=== PATIENT | female | born 1960 | race Caucasian/White ===

== ENCOUNTER 2025-05-26 07:20 | Day surgery (SDC) | payer OTHER, SELFPAY ==
[2025-05-25 11:26] VITALS: BMI 31.1
[2025-05-26] VITALS (12 sets, daily range): BP systolic 129–155; BP diastolic 59–104; PULSE 70–97; RESP 13–20; TEMP 36.6–36.8; O2SAT 97–100; BMI 32.1
[2025-05-26] MEDS: SODIUM CHLORIDE 0.9% 500 ML 500 ML 20 ML IV (09:20)
[2025-05-26] MEDS: fentaNYL CIT INJ 50 mCg/ML AMP 2ML (ASD USE ONLY) IVP (09:28)
[2025-05-26] MEDS: MIDAZOLAM INJ 1 MG/ML VIAL 2 ML (ASD USE ONLY) 2 MG IVP (09:28)
== END 2025-05-26 10:23 | disposition home or self-care (01) ==
PROVIDERS: Referring Provider Specialist; Visit Provider Specialist
PROC: 0DBE8ZX Excision of Large Intestine, Via Natural or Artificial Opening Endoscopic, Diagnostic (ICD-10-PCS; CPT 45380; principal; 2025-05-26 08:30)
DX: Z12.11 Encounter for screening for malignant neoplasm of colon (principal); D12.8 Benign neoplasm of rectum; K64.1 Second degree hemorrhoids; K57.30 Diverticulosis of large intestine without perforation or abscess without bleeding
CPT/HCPCS: 45385; A4649; J1200; J2250; J3010; J7999